=== PATIENT | male | born 1960 | race Caucasian/White ===

== ENCOUNTER 2016-09-01 17:56 | Outpatient (CLI) | payer OTHER | END 2016-09-01 17:57 | disposition critical access hospital (66) | DX: F91.8 Other conduct disorders (principal); R45.851 Suicidal ideations | CPT/HCPCS: A0425; A0429 ==

== ENCOUNTER 2016-09-01 18:20 | Emergency (ER) | payer OTHER ==
[2016-09-01] MEDS ORDERED: ONDANSETRON ODT 4 MG Prepack 2 TL PRN (19:14)
[2016-09-01] MEDS ORDERED: ONDANSETRON ODT 4 MG Prepack 2 TL ONE (19:21)
== END 2016-09-01 19:25 | disposition home or self-care (01) ==
DX: F11.20 Opioid dependence, uncomplicated (principal); R03.0 Elevated blood-pressure reading, without diagnosis of hypertension; M54.9 Dorsalgia, unspecified; G89.29 Other chronic pain

== ENCOUNTER 2018-04-09 18:58 | Outpatient (CLI) | payer OTHER | END 2018-04-09 18:59 | disposition short-term general hospital (02) | LOC: EMS 18:58 | PROVIDERS: ATTEND Surgery | DX: M25.512 Pain in left shoulder (principal); W01.0XXA Fall on same level from slipping, tripping and stumbling without subsequent striking against object, initial encounter; Y93.01 Activity, walking, marching and hiking; Y92.009 Unspecified place in unspecified non-institutional (private) residence as the place of occurrence of the external cause | CPT/HCPCS: A0425; A0433 ==